=== PATIENT | female | born 1995 | race Caucasian/White ===

== ENCOUNTER → 2018-11-13 | Outpatient (CLI) | payer BC ==
[~2018-11-13] MED LIST: LOESTRIN1.5/30 28DAY PO; ZOFRAN ODT4 MG PO
== END ==
LOC: COL.RAD 07:22
DX: R19.09 Other intra-abdominal and pelvic swelling, mass and lump (principal)

== ENCOUNTER 2020-08-29 20:15 | Outpatient (CLI) | payer BC ==
[~2020-08-29] VITALS: Ht 167.6 cm; Wt 87.3 kg
--- NOTE | 2020-08-29 20:20 | NUR ---
G2L0. 36.3. Ambulatory to LDR 3 with spouse. Clean gown on. Pt states she has not felt baby move all day. Pt reports eating dinner and drinking water really fast and ambulation with no results. Pt states when she is at work she does not really feel fetus move all that much but night time is normally his awake time. Pt very anxious. EFM and TOCO explained and applied. Pt denies contractions, leaking of fluids or vaginal bleeding. Plan of care explained to pt and who verbalize their understanding. 2045: NST reactive, catagory 1 tracing. called and updated on pts status. Discharge orders received. Pt off monitors to change. Pt very thankful and relieved. 2054: discharge instructions given to pt and spouse who verbalize their understanding. Questions answered. Pt ambulatory off unit.
[2020-08-29] MEDS ORDERED: PRENATAL MVI PO (20:33)
[2020-08-29] MEDS ORDERED: CALCIUM-500 5001 CTB PO (20:34)
[2020-08-29 20:45] VITALS: BP 117/63; PULSE 90
[2020-08-29 20:46] VITALS: BP 129/78; PULSE 117; TEMP 98.2
== END 2020-08-29 20:55 | disposition home or self-care (01) ==
LOC: LDRO 20:15
DX: O36.8130 Decreased fetal movements, third trimester, not applicable or unspecified (principal); Z3A.36 36 weeks gestation of pregnancy

== ENCOUNTER 2020-09-14 14:33 | Outpatient (CLI) | payer BC ==
[~2020-09-14] VITALS: Ht 167.6 cm; Wt 93.2 kg
[~2020-09-14 14:33] MED LIST changes: +CALCIUM-500 5001 CTB PO; +PRENATAL MVI PO
[2020-09-14 15:00] VITALS: BP 128/79; PULSE 115; TEMP 98.4
--- NOTE | 2020-09-14 15:00 | NUR ---
1440- Pt ambulatory on unit, complaints of possible SROM. Pt changes into gown. 1446- Pt into bed, EFM and TOCO on and tracing. Pt states she went for a walk and left wetness in her underwear. She states she noticed thick, mucous that had brown tint. Denies more leaking since then. VSS. Amniotrace negative, SVE /-3, difficult to lift head off cervix well but no gush of fluid noted with exam. Thick, light brown discharge on glove. Plan of care explained.. Pt denies questions at this time.
[2020-09-14 15:30] VITALS: BP 113/68; PULSE 76
--- NOTE | 2020-09-14 15:40 | NUR ---
1530- Discharge paperwork given and explained. Labor precautions explained. Questions encouraged and answered. EFM and TOCO off. Pt up to change into street clothes. 1540- Pt ambulates off unit in stable condition.
== END 2020-09-14 15:40 | disposition home or self-care (01) ==
LOC: LDRO
DX: O42.913 Preterm premature rupture of membranes, unspecified as to length of time between rupture and onset of labor, third trimester (principal); Z3A.40 40 weeks gestation of pregnancy

== ENCOUNTER 2020-09-24 06:52 | Inpatient (IN) | payer BC ==
[2020-09-24] VITALS (55 sets, daily range): BP systolic 100–141; BP diastolic 41–99; PULSE 75–131; TEMP 98.2–99.6
[~2020-09-24] VITALS: Ht 167.6 cm; Wt 92.3 kg
[~2020-09-24 06:52] MED LIST changes: -MOTRIN 800800 MG/TAB PO; -PERCOCET 325 MG1 TA2 PO
--- NOTE | 2020-09-24 06:55 | NUR ---
0655- 40.1, G2L0 arrives on unit for scheduled IOL. Reports normal movement, denies any LOF, VB, or regular contractions. Ambulatory to LDR5 with spouse. Oriented to room. 0705- EFM explained and placed. VS obtained. Questions asked and answered. 0710- IV to left FA. Routine labs obtained via IV site. LR infusing per orders. Consent forms signed and assessment completed. 0730- Pitocin explained and started per orders. See EMAR. Patient resting with call light within reach. Denies further questions or needs at this time.
[2020-09-24 07:50] LABS: BASO % 0.3 % (0.0-2.0); EOS # 0.1 (0.0-0.7); EOS % 0.4 % (0-4.0); GRAN % 77.6 % (42.2-75.2); HEMOGLOBIN 13.3 g/dl (12.5-16.0); LYMPH # 1.6 (1.2-3.4); MEAN CELL VOLUME 94 fl (80.0-100.0); MEAN CORPUSCULAR HEMOGLOBIN 31 pg (27.0-31.0); MEAN CORPUSCULAR HGB CONC 33 g/dl (33.0-37.0); MEAN PLATELET VOLUME 8.9 fl (7.4-10.4); MONO # 0.8 (0.1-0.6); PLATELET COUNT 212 K/mm3 (130-400); RED BLOOD COUNT 4.28 M/mm3 (4.10-5.30); REDCELL DISTRIBUTION WIDTH-CV 11.8 % (11.5-14.5)
--- NOTE | 2020-09-24 11:35 | NUR ---
1135- Patient to edge of bed for epidural placement. Lena Mendez TEAROOM HOST at bedside. FHR difficult to trace due to maternal position. RN remains at bedside. 1143- Epidural placed and single shot this time by Lena Mendez CRNA. See anesthesia record.
--- NOTE | 2020-09-24 12:52 | NUR ---
1252- Subtle FHR decel noted. Difficult to determine onset due to ctx tracing intermittently. RN remains at bedside palpating ctx and adjusting EFM. 1315- FHR decels noted from baseline of 120 to 90bmp with spont. return to baseline. Ctx tracing intermittently. Difficult to determine FHR decel onset. RN at bedside adj. EFM and palpating ctx. Will cont. to monitor. 1327- Prolonged FHR decel down to 70bmp and lasting 8 min. Patient to left and right lateral. LR bolus initiated. 1330- O2 on at 10L via mask. Pitocin stopped. Dr. Sanchez notified. See physician notification. 1333- FHR cont. in 70's. SVE by this RN /-2. FSE placed. Patient right lateral. 1334- FHR to 140's with minimal variability. 1342- Dr. Sanchez on unit and to patient bedside. Reviews plan of care with patient and SO who verbalize understanding. SVE by provider 5cm. FSE dislodged. External EFM reapplied. Patient repositioned in bed. Questions asked and answered. Denies further needs or questions at this time. Resting with call light within reach.
--- NOTE | 2020-09-24 15:14 | NUR ---
1514- Late FHR decels noted. Pitocin off, LR bolus, O2 via mask. SVE 5/90/-2. Repositioned right lateral. Dr. Sanchez updated. See physician notification. Patient updated on plan of care, verbalizes understanding. 1615- Patient repositioned high fowlers, right tilt. FHR decel to 80's and lasting 2.5min. SVE 5/90/-2 by this RN. 1620- Dr. Sanchez updated on patient. See physican notification. Plan of care reviewed with patient and spouse who verbalize understanding. Patient prepped for delivery. 1635- Dr. Sanchez on unit. Patient to OR suite via bed.
--- NOTE | 2020-09-24 17:35 | NUR ---
1735- Patient to pacu via bed. Monitors applied. Free flow noted with fundal check. Fundus firm and midline. Free flow continues after fundal exam. Dr. Sanchez to bedside to evaluate. Orders received. 1745- Moderate amount of lochia noted with fundal. Methergin 0.2mg IM given. See EMAR. Will cont. to monitor. 1750- Fundus firm, midline, and bleeding small. Pads changed. 1815- Patient to room 209 via bed. Oriented to room and plan of care. Denies questions or needs at this time. Resting with call light within reach. Bedside report given to Regine HERNÁNDEZ.
--- NOTE | 2020-09-25 00:20 | NUR ---
Pt up to the bathroom with standby assistance and without complications. Oconnell removed. Stella-care done. Assisted pt back to bed. Plan of care reviewed.
[2020-09-25 00:40] VITALS: BP 117/58; PULSE 86; TEMP 98.1
[2020-09-25 07:06] VITALS: BP 112/68; PULSE 90; TEMP 97.9
[2020-09-25 16:13] VITALS: BP 114/68; PULSE 76; TEMP 98.1
--- NOTE | 2020-09-25 18:40 | NUR ---
Report recieved. Resting in bed while holding . Updated whiteboard and reviewed POC. Discussed pain management options; stated, "I do not want to sleep to hard so I don't want a pain pill."
[2020-09-25 20:00] VITALS: BP 108/68; PULSE 88; TEMP 97.5
[2020-09-26 07:02] VITALS: BP 117/58; PULSE 87; TEMP 98.3
[2020-09-26] MEDS ORDERED: MOTRIN 800800 MG/TAB PO (08:44)
[2020-09-26] MEDS ORDERED: PERCOCET 325 MG1 TA2 PO (08:45)
--- NOTE | 2020-09-26 09:44 | NUR ---
Initial visit; Parents thanked Mannequin Maker for offering congratulations and God's blessings for the of their son. Mannequin Maker thanked family for choosing [facility].
--- NOTE | 2020-09-26 15:00 | NUR ---
1515 Rests in bed, alert. Discharge instructions given, verbalizes understanding.1545 Dismissed to home with family, alert, ambulatory, stable.
== END 2020-09-26 15:45 | disposition home or self-care (01) | DRG 788 ==
LOC: LDR 06:52 → OB 08:47
PROVIDERS: ADMIT Obstetrics & Gynecology
PROC: 10D00Z1 Extraction of Products of Conception, Low, Open Approach (ICD-10-PCS; principal; 2020-09-24)
PROC: 10907ZC Drainage of Amniotic Fluid, Therapeutic from Products of Conception, Via Natural or Artificial Opening (ICD-10-PCS; 2020-09-24)
PROC: 3E033VJ Introduction of Other Hormone into Peripheral Vein, Percutaneous Approach (ICD-10-PCS; 2020-09-24)
DX: O48.0 Post-term pregnancy (principal); O69.1XX0 Labor and delivery complicated by cord around neck, with compression, not applicable or unspecified; O76 Abnormality in fetal heart rate and rhythm complicating labor and delivery; Z3A.40 40 weeks gestation of pregnancy; Z37.0 Single live birth
CPT/HCPCS: J0690; J1885; J2175; J2210; J2370; J2400; J2405; J2590; J2795; J3010; J7120

== ENCOUNTER → 2020-09-24 | Outpatient (CLI) | payer BC ==
[~2020-09-24] MED LIST changes: +MOTRIN 800800 MG/TAB PO; +PERCOCET 325 MG1 TA2 PO
== END ==
LOC: ZCOL.LAB 08:46
DX: Z20.822 Contact with and (suspected) exposure to COVID-19 (principal)

== ENCOUNTER 2023-11-05 15:22 | Outpatient (CLI) | payer BC ==
[~2023-11-05] VITALS: Ht 167.6 cm; Wt 90.5 kg
--- NOTE | 2023-11-05 14:00 | NUR ---
PT AMBULATES ONTO THE UNIT DUE TO DECREASED MOVEMENT.PT STATES, "BABY IS USUALLY PRETTY ACTIVE IN THE MORNING". PT DENIES LOF/VB.PT STATES,"ALONZO BEEN HAVING SOME PERIOD LIKE CRAMPS".SHE RATES THEM A 2 ON THE PAIN SCALE. PT ADVISED TO CHANGE INTO GOWN.EFM AND TOCO APPLIED AND TRACING CATEGORY 1. POC REVIEWED WITH PT.PT VERBALIZES UNDERSTANDING.
[2023-11-05 14:15] VITALS: BP 134/68; PULSE 98; TEMP 98.7
[2023-11-05 14:30] VITALS: BP 146/73; PULSE 91
[~2023-11-05 15:22] MED LIST changes: +DURLAZA162.5 MG PO; +LR 1,000 ML IV PRN; +MOTRIN 800800 MG/TAB PO; +PERCOCET 325 MG1 TA2 PO
== END 2023-11-05 15:36 | disposition home or self-care (01) ==
LOC: LDRO 15:22
DX: O36.8130 Decreased fetal movements, third trimester, not applicable or unspecified (principal); Z3A.31 31 weeks gestation of pregnancy

== ENCOUNTER 2024-01-08 13:49 | Inpatient (IN) | payer BC ==
[~2024-01-08] VITALS: Ht 167.6 cm; Wt 97.3 kg
[~2024-01-08 13:49] MED LIST changes: -LR 1,000 ML IV PRN
[2024-01-12] VITALS (21 sets, daily range): BP systolic 102–148; BP diastolic 55–80; PULSE 65–108; TEMP 97.7–97.9
--- NOTE | 2024-01-12 06:20 | NUR ---
CARE OF PATIENT RECIEVED FROM TATO ERIC RN. PATIENT RESTING IN ROOM
--- NOTE | 2024-01-12 06:25 | NUR ---
PATIENT HERE AND C/O OF IRREGULAR CTX. PATIENT IS CONSIDERING TOLAC BUT IS SCHEDULED FOR SECTION THIS MORNING. PATIENT IS 41 WEEKS TODAY. SVE /-2. CONCERNS DISCUSSED WITH PATIENT AND PROVIDER NOTIFIED.
[2024-01-12] MEDS ORDERED: LR 1,000 ML IV SCH (06:30)
--- NOTE | 2024-01-12 07:00 | NUR ---
AT BEDSIDE. FHR TRACING REVIEWED. PLAN OF CARE UPDATED. SVE 1-2/50/-2. BASED ON MONITORING AND SVE PROVIDER STILL RECOMMENDS SECTION WITH PATIENT. OPTIONS DISCUSSED WITH PATIENT AND PATIENT IS IN AGREEANCE WITH MOVING FOWARD WITH SECTION.
[2024-01-12] MEDS ORDERED: NATURAL MAGNES200 MG PO (07:09)
--- NOTE | 2024-01-12 07:30 | NUR ---
PATIENT AMBULATING BACK TO SECTION SUITE.
[2024-01-12 07:39] LABS: BASO % 0.3 % (0.0-2.0); EOS % 0.4 % (0.0-4.0); GRAN # 9.3 K/mm3 (1.4-6.5); GRAN % 81.5 % (42.2-75.2); HEMATOCRIT 40.6 % (37.0-47.0); HEMOGLOBIN 13.7 g/dl (12.5-16.0); LYMPH # 1.3 K/mm3 (1.2-3.4); LYMPH % 11.3 % (20.0-51.0); MEAN CELL VOLUME 93 fl (80.0-100.0); MEAN CORPUSCULAR HEMOGLOBIN 31 pg (27-31); MEAN CORPUSCULAR HGB CONC 34 g/dl (33.0-37.0); MEAN PLATELET VOLUME 9.1 fl (7.4-10.4); MONO # 0.7 K/mm3 (0.1-0.6); MONO % 6.1 % (1.7-9.3); PLATELET COUNT 192 K/mm3 (130-400); RED BLOOD COUNT 4.38 M/mm3 (4.10-5.30); REDCELL DISTRIBUTION WIDTH-CV 11.9 % (11.5-14.5)
[2024-01-12] MEDS ORDERED: Ketorolac 60 MG/2 ML VIAL IM ONE (07:57)
[2024-01-12] MEDS ORDERED: Phenylephrine 10 MG/ML VIAL ONE (07:57)
[2024-01-12] MEDS ORDERED: Meperidine 50 MG/ML 1 ML VIAL ONE (07:58)
[2024-01-12] MEDS ORDERED: Oxytocin 10 UNITS/ML VIAL ONE (07:58)
[2024-01-12] MEDS ORDERED: dexAMETHasone 10 MG/ML VIAL ONE (07:58)
[2024-01-12] MEDS ORDERED: NS 20 ML IV ONE (07:58)
[2024-01-12] MEDS ORDERED: LR 1,000 ML IV ONE (07:58)
[2024-01-12] MEDS ORDERED: Magnes Hydrox (MOM) 80 MG/ML 30 ML CUP PO PRN (08:45)
[2024-01-12] MEDS ORDERED: Loratadine 10 MG TAB PO PRN (08:45)
[2024-01-12] MEDS ORDERED: oxyCODONE/Acetaminophen 5-325 MG TAB PO PRN (09:30)
[2024-01-12] MEDS ORDERED: LR 1,000 ML IV PRN (09:30)
[2024-01-12] MEDS ORDERED: Morphine 4 MG/ML VIAL IV PRN (09:30)
[2024-01-12] MEDS ORDERED: Measles/Mumps/Rubella Virus Vaccine Live w Diluent 0.5 ML VIAL SQ SCH (09:30)
[2024-01-12] MEDS ORDERED: Naloxone 0.4 MG/ML VIAL IV PRN (09:30)
[2024-01-12] MEDS ORDERED: Ondansetron 4 MG/2 ML VIAL IV PRN (09:30)
[2024-01-12] MEDS ORDERED: oxyCODONE 5 MG TAB PO PRN (11:30)
[2024-01-12] MEDS ORDERED: Acetaminophen 500 MG TAB PO PRN (11:30)
[2024-01-12] MEDS ORDERED: Ibuprofen 800 MG TAB PO SCH (15:00)
--- NOTE | 2024-01-12 15:50 | NUR ---
PATIENT UP TO BATHROOM STANDBY ASSIST X 1 RN. MITCHELL CATHETER REMOVED. PATIENT ABLE TO VOID. PERICARE COMPLETED. PATIENT STANDBY ASSISTED BACK TO BED.
[2024-01-12] MEDS ORDERED: Sennosides/Docusate 8.6-50 MG TAB PO SCH (17:00)
[2024-01-12] MEDS ORDERED: traZODone 50 MG TAB PO PRN (21:00)
[2024-01-13 03:00] VITALS: BP 112/72; PULSE 85; TEMP 98.6
[2024-01-13 09:00] VITALS: BP 121/78; PULSE 77; TEMP 98
--- NOTE | 2024-01-13 10:04 | NUR ---
Initial visit attempt; Patient Indisposed, Mill Worker left card offering congratulations and God's blessings for the of their daughter and information regarding the availability of [facility] at our hospital.
== END 2024-01-13 13:20 | disposition home or self-care (01) | DRG 788 ==
LOC: OB 01-12 05:48 → LDR 01-12 05:48 → OB 01-12 09:10
PROVIDERS: ADMIT Obstetrics & Gynecology
PROC: 10D00Z1 Extraction of Products of Conception, Low, Open Approach (ICD-10-PCS; principal; 2024-01-12)
DX: O34.211 Maternal care for low transverse scar from previous cesarean delivery (principal); O48.0 Post-term pregnancy; Z3A.41 41 weeks gestation of pregnancy; Z37.0 Single live birth; Z86.16 Personal history of COVID-19
CPT/HCPCS: J0690; J1100; J1885; J2175; J2371; J2590; J7120